=== PATIENT | male | born 1945 | race Caucasian/White ===

== ENCOUNTER 2017-09-16 15:49 | Inpatient (IN) | payer MEDICARE, BC ==
[2017-09-16] MEDS: ONDANSETRON 4 MG INJ IV (20:00)
[2017-09-16] MEDS: ASPIRIN 325 MG TAB PO (20:00)
[2017-09-16] MEDS: LIDOCAINE/MYLANTA 40 ML BTL PO (20:00)
[2017-09-16 20:06] LABS: ADD MAN DIFF? NO
[2017-09-16 20:16] LABS: WHITE BLOOD COUNT 19.1 10^3/ul (4.8-10.8)
[2017-09-16 20:16] LABS: ABNORMAL IP MESSAGE 1; BASOPHILS % 0.2 % (0.0-2.0); EOSINOPHILS % 0.1 % (0.0-7.0); HEMATOCRIT 45.5 % (42.0-52.0); HEMOGLOBIN 15.5 g/dl (14.0-18.0); LYMPHOCYTES # 0.4 10^3/ul (0.8-2.9); LYMPHOCYTES % 2.1 % (15.0-51.0); MEAN CORPUSCULAR HEMOGLOBIN 27.7 pg (29.0-33.0); MEAN CORPUSCULAR HGB CONC 34.1 g/dl (32.0-37.0); MEAN CORPUSCULAR VOLUME 81.3 fl (82.0-101.0); MEAN PLATELET VOLUME 10.7 fl (7.4-10.4); MONOCYTES % 5.4 % (0.0-11.0); NEUTROPHIL # 17.4 10^3/ul (1.6-7.5); NEUTROPHILS % 91.4 % (39.0-77.0); PLATELET COUNT 281 10^3/UL (140-415); POSITIVE DIFF @See below; RED CELL DISTRIBUTION WIDTH 13.2 % (11.5-14.5)
[2017-09-16 20:30] LABS: ANION GAP 16 (8-16); BLOOD UREA NITROGEN 21 mg/dl (7-20); CALCIUM 9.5 mg/dl (8.4-10.2); CARBON DIOXIDE 29 mmol/L (21-31); CHLORIDE 99 mmol/L (97-110); CREATININE 1.39 mg/dl (0.61-1.24); GLUCOSE 167 mg/dl (70-220); POTASSIUM 3.1 mmol/L (3.5-5.1); SODIUM 141 mmol/L (135-144)
[2017-09-16 20:44] LABS: B-TYPE NATRIURETIC PEPTIDE 407 PG/ML (0-125); TROPONIN-I 0.025 ng/ml (0.00-0.12)
[2017-09-16 22:28] LABS: URINE BLOOD (Dip) POC Trace-intact (NEGATIVE); URINE GLUCOSE (Dip) POC Negative (NEGATIVE); URINE KETONES (Dip) POC Trace (NEGATIVE); URINE LEUKOCYTE EST (Dip) POC Negative (NEGATIVE); URINE NITRITE (Dip) POC Negative (NEGATIVE); URINE TOTAL PROTEIN POC 3+ (NEGATIVE)
[2017-09-16 22:53] LABS: INR 1.13; PROTIME 14.7 Sec (11.9-14.9); PT RATIO 1.1
[2017-09-16 22:54] LABS: PARTIAL THROMBOPLASTIN TIME 34.1 Sec (25.0-35.0)
[2017-09-16 22:56] LABS: ALANINE AMINOTRANSFERASE 238 IU/L (13-69); ALBUMIN 4.6 g/dl (3.3-4.9); ALKALINE PHOSPHATASE 175 IU/L (42-121); ASPARTATE AMINO TRANSFERASE 285 IU/L (15-46); BILIRUBIN,INDIRECT 0.7 mg/dl (0-1.1); BILIRUBIN,TOTAL 1.8 mg/dl (0.2-1.3); LIPASE 108 U/L (23-300); TOTAL PROTEIN 7.6 g/dl (6.1-8.1)
[2017-09-16] MEDS: CEFTRIAXONE 1 GM/50 ML (PMX) 50 ML IVPB (23:10)
[2017-09-16] MEDS: SOD CHLORIDE 0.9% 1,000 ML IV ×2 (23:10→23:16)
[2017-09-16] MEDS ORDERED: NACL 0.9% 3 ML SYG IV (23:30)
[2017-09-16] MEDS ORDERED: ACETAMINOPHEN 325 MG TAB PO ×2 (23:30)
[2017-09-16] MEDS ORDERED: HYDROmorphONE 0.5 MG/0.5 ML SYG IV (23:30)
[2017-09-16] MEDS ORDERED: ONDANSETRON 4 MG INJ IV ×2 (23:30)
[2017-09-16 23:34] LABS: INR 1.12; PROTIME 14.6 Sec (11.9-14.9); PT RATIO 1.1
[2017-09-16 23:35] LABS: PARTIAL THROMBOPLASTIN TIME 29.2 Sec (25.0-35.0)
[2017-09-16] MEDS: metroNIDAZOLE 500 MG/NS (PMX) 100 ML IVPB (23:42)
[2017-09-17] MEDS: PIPER-TAZO 3.375 GM IV (PMX) 100 ML IVPB ×4 (00:46→17:26)
[2017-09-17 01:57] LABS: CREATINE KINASE 73 IU/L (23-200)
[2017-09-17 02:09] LABS: CK INDEX 0.8; TROPONIN-I 0.052 ng/ml (0.00-0.12)
[2017-09-17 02:10] LABS: CK-MB 0.58 ng/ml (0.0-2.4)
[2017-09-17 07:45] LABS: ADD MAN DIFF? NO
[2017-09-17 07:50] LABS: ABNORMAL IP MESSAGE 1; BASOPHILS % 0.1 % (0.0-2.0); HEMATOCRIT 40.4 % (42.0-52.0); HEMOGLOBIN 13.4 g/dl (14.0-18.0); LYMPHOCYTES # 0.7 10^3/ul (0.8-2.9); LYMPHOCYTES % 3.3 % (15.0-51.0); MEAN CORPUSCULAR HEMOGLOBIN 27.4 pg (29.0-33.0); MEAN CORPUSCULAR HGB CONC 33.2 g/dl (32.0-37.0); MEAN CORPUSCULAR VOLUME 82.6 fl (82.0-101.0); MEAN PLATELET VOLUME 11.1 fl (7.4-10.4); MONOCYTE # 1.1 10^3/ul (0.3-0.9); MONOCYTES % 4.7 % (0.0-11.0); NEUTROPHIL # 20.3 10^3/ul (1.6-7.5); NEUTROPHILS % 91.2 % (39.0-77.0); PLATELET COUNT 243 10^3/UL (140-415); POSITIVE DIFF @See below; RED BLOOD COUNT 4.89 10^6/ul (4.70-6.10); RED CELL DISTRIBUTION WIDTH 13.7 % (11.5-14.5)
[2017-09-17 07:50] LABS: WHITE BLOOD COUNT 22.3 10^3/ul (4.8-10.8)
[2017-09-17] MEDS: hydrALAzine 20 MG INJ IV (07:50)
[2017-09-17 08:14] LABS: HEMOGLOBIN A1C 6.9 % (0-5.9)
[2017-09-17 08:26] LABS: TROPONIN-I 0.069 ng/ml (0.00-0.12)
[2017-09-17 08:28] LABS: ALANINE AMINOTRANSFERASE 215 IU/L (13-69); ALBUMIN 3.4 g/dl (3.3-4.9); ALBUMIN/GLOBULIN RATIO 1.21; ALKALINE PHOSPHATASE 126 IU/L (42-121); ANION GAP 16 (8-16); ASPARTATE AMINO TRANSFERASE 207 IU/L (15-46); BILIRUBIN,INDIRECT 0.7 mg/dl (0-1.1); BILIRUBIN,TOTAL 3.1 mg/dl (0.2-1.3); BLOOD UREA NITROGEN 20 mg/dl (7-20); CALCIUM 8.7 mg/dl (8.4-10.2); CARBON DIOXIDE 30 mmol/L (21-31); CHLORIDE 100 mmol/L (97-110); CHOL/HDL RATIO 3.5 RATIO; CHOLESTEROL 103 mg/dl (100-200); CREATININE 1.22 mg/dl (0.61-1.24); GLUCOSE 161 mg/dl (70-220); HDL CHOLESTEROL 29 mg/dl (31-75); LDL CHOLESTEROL,CALCULATED 50 mg/dl; MAGNESIUM 1.5 mg/dl (1.7-2.5); POTASSIUM 3.7 mmol/L (3.5-5.1); SODIUM 142 mmol/L (135-144); TOTAL PROTEIN 6.2 g/dl (6.1-8.1); TRIGLYCERIDES 118 mg/dl (0-149)
[2017-09-17 08:30] LABS: CK INDEX 1.1; CREATINE KINASE 105 IU/L (23-200)
[2017-09-17 08:31] LABS: CK-MB 1.14 ng/ml (0.0-2.4)
[2017-09-17 08:45] LABS: THYROID STIMULATING HORMONE 0.588 MIU/L (0.465-4.680)
[2017-09-17] MEDS: PANTOPRAZOLE (EC) 40 MG TAB PO (09:28)
[2017-09-17] MEDS: DILTIAZEM (CD) 300 MG CAP PO (09:28)
[2017-09-17] MEDS: MAGNESIUM SULFATE 2 GM/50 ML 50 ML IVPB (12:16)
[2017-09-17] MEDS ORDERED: CEFAZOLIN 1 GM INJ (13:25)
[2017-09-17] MEDS ORDERED: MIDAZOLAM 1 MG/ML 2 ML INJ (13:25)
[2017-09-17] MEDS ORDERED: ROCURONIUM 50 MG INJ (13:25)
[2017-09-17] MEDS ORDERED: GLYCOPYRROLATE 0.4 MG INJ (13:25)
[2017-09-17] MEDS ORDERED: PROPOFOL 20 ML (13:25)
[2017-09-17] MEDS ORDERED: NEOSTIGMINE 3 MG/3 ML SYRINGE (13:25)
[2017-09-17] MEDS ORDERED: FENTAnyl 50 MCG/ML VIAL (13:26)
[2017-09-17] MEDS ORDERED: DEXAMETHASONE 4 MG/ML 1 ML INJ (13:26)
[2017-09-17] MEDS ORDERED: ONDANSETRON 4 MG INJ (13:26)
[2017-09-17] MEDS ORDERED: IOHEXOL 300MG/ML 30 ML BTL (13:41)
[2017-09-17] MEDS ORDERED: SUGAMMADEX SODIUM 200 MG/2 ML VIAL IV (14:11)
[2017-09-17] MEDS ORDERED: TRIMETHOBENZAMIDE 100 MG/ML VIAL IM (14:30)
[2017-09-17] MEDS ORDERED: DIPHENHYDRAMINE 50 MG INJ IV (14:30)
[2017-09-17] MEDS ORDERED: OXYCODONE/ACETAMINOPHEN (5/325) TAB PO ×2 (14:30)
[2017-09-17] MEDS ORDERED: MIDAZOLAM 1 MG/ML 2 ML INJ IV (14:30)
[2017-09-17] MEDS ORDERED: FENTAnyl 50 MCG/ML VIAL IV ×3 (14:30)
[2017-09-17] MEDS ORDERED: MEPERIDINE 25 MG INJ IV (14:30)
[2017-09-17] MEDS ORDERED: HYDROmorphONE (0.2 MG/ML) 10ML SYG IV ×3 (14:30)
[2017-09-17] MEDS ORDERED: hydrALAzine 20 MG INJ IV (14:30)
[2017-09-17] MEDS ORDERED: ONDANSETRON 4 MG INJ IV (14:30)
[2017-09-17] MEDS ORDERED: LABETALOL HCL 20MG INJ IV (14:30)
[2017-09-17] MEDS ORDERED: EPHEDrine SULFATE 50 MG/5 ML SYG IV (14:30)
[2017-09-17] MEDS: IPRATROPIUM (NEB) 0.5 MG/2.5 ML AMP HHN (14:50)
[2017-09-17] MEDS: ALBUTEROL 0.083% (NEB) 2.5 MG/3 ML AMP HHN (14:50)
[2017-09-17] MEDS: SOD CHLORIDE 0.9% 1,000 ML IV (16:15)
[2017-09-18] MEDS: SOD CHLORIDE 0.9% 1,000 ML IV ×2 (01:25→16:05)
[2017-09-18] MEDS: PIPER-TAZO 3.375 GM IV (PMX) 100 ML IVPB ×4 (05:31→17:49)
[2017-09-18] MEDS: PANTOPRAZOLE (EC) 40 MG TAB PO (05:32)
[2017-09-18] MEDS: hydrALAzine 20 MG INJ IV ×2 (05:39→16:37)
[2017-09-18 06:48] LABS: ADD MAN DIFF? NO
[2017-09-18 07:03] LABS: ABNORMAL IP MESSAGE 1; BASOPHILS % 0.1 % (0.0-2.0); HEMATOCRIT 37.7 % (42.0-52.0); HEMOGLOBIN 12.8 g/dl (14.0-18.0); LYMPHOCYTES # 0.5 10^3/ul (0.8-2.9); LYMPHOCYTES % 3.6 % (15.0-51.0); MEAN CORPUSCULAR VOLUME 82.5 fl (82.0-101.0); MEAN PLATELET VOLUME 11.1 fl (7.4-10.4); MONOCYTE # 0.4 10^3/ul (0.3-0.9); MONOCYTES % 2.9 % (0.0-11.0); NEUTROPHIL # 13.8 10^3/ul (1.6-7.5); NEUTROPHILS % 92.8 % (39.0-77.0); PLATELET COUNT 211 10^3/UL (140-415); POSITIVE DIFF @See below; RED BLOOD COUNT 4.57 10^6/ul (4.70-6.10); RED CELL DISTRIBUTION WIDTH 13.6 % (11.5-14.5)
[2017-09-18 07:03] LABS: WHITE BLOOD COUNT 14.8 10^3/ul (4.8-10.8)
[2017-09-18 07:13] LABS: MAGNESIUM 2.3 mg/dl (1.7-2.5)
[2017-09-18 07:13] LABS: PHOSPHORUS 2.1 mg/dl (2.5-4.9)
[2017-09-18] MEDS: DILTIAZEM (CD) 300 MG CAP PO ×2 (07:35→12:14)
[2017-09-18 07:54] LABS: HEMOGLOBIN A1C 6.7 % (0-5.9)
[2017-09-18 08:53] LABS: ALANINE AMINOTRANSFERASE 176 IU/L (13-69); ALBUMIN 3.3 g/dl (3.3-4.9); ALBUMIN/GLOBULIN RATIO 1.06; ALKALINE PHOSPHATASE 131 IU/L (42-121); ANION GAP 17 (8-16); ASPARTATE AMINO TRANSFERASE 119 IU/L (15-46); BILIRUBIN,INDIRECT 0.4 mg/dl (0-1.1); BILIRUBIN,TOTAL 0.4 mg/dl (0.2-1.3); BLOOD UREA NITROGEN 21 mg/dl (7-20); CALCIUM 8.5 mg/dl (8.4-10.2); CARBON DIOXIDE 30 mmol/L (21-31); CHLORIDE 103 mmol/L (97-110); CREATININE 1.29 mg/dl (0.61-1.24); GLUCOSE 187 mg/dl (70-220); POTASSIUM 3.7 mmol/L (3.5-5.1); SODIUM 146 mmol/L (135-144); TOTAL PROTEIN 6.4 g/dl (6.1-8.1)
[2017-09-18] MEDS ORDERED: ROCURONIUM 50 MG INJ (09:24)
[2017-09-18] MEDS ORDERED: LIDOCAINE 1% (MDV) 20 ML INJ (09:24)
[2017-09-18] MEDS ORDERED: MIDAZOLAM 1 MG/ML 2 ML INJ (09:24)
[2017-09-18] MEDS ORDERED: PROPOFOL 20 ML (09:24)
[2017-09-18] MEDS ORDERED: LABETALOL HCL 20MG INJ (09:35)
[2017-09-18] MEDS ORDERED: ONDANSETRON 4 MG INJ (09:50)
[2017-09-18] MEDS ORDERED: FAMOTIDINE 20 MG INJ (09:50)
[2017-09-18] MEDS ORDERED: DEXAMETHASONE 4 MG/ML 1 ML INJ (09:50)
[2017-09-18] MEDS ORDERED: hydrALAzine 20 MG INJ IV (10:00)
[2017-09-18] MEDS ORDERED: LABETALOL HCL 20MG INJ IV (10:00)
[2017-09-18] MEDS ORDERED: DIPHENHYDRAMINE 50 MG INJ IV (10:00)
[2017-09-18] MEDS ORDERED: METOCLOPRAMIDE 10 MG INJ IV (10:00)
[2017-09-18] MEDS ORDERED: ONDANSETRON 4 MG INJ IV ×2 (10:00→11:00)
[2017-09-18] MEDS ORDERED: MEPERIDINE 25 MG INJ IV (10:00)
[2017-09-18] MEDS ORDERED: HYDROmorphONE (0.2 MG/ML) 10ML SYG IV ×2 (10:00)
[2017-09-18] MEDS ORDERED: hydrALAzine 20 MG INJ (10:04)
[2017-09-18] MEDS: BUPIVACAINE 0.25% (MPF) 30 ML INJ (10:08)
[2017-09-18] MEDS ORDERED: ROPIVACAINE 0.5 % 30 ML VIAL (10:09)
[2017-09-18] MEDS ORDERED: SUGAMMADEX SODIUM 200 MG/2 ML VIAL IV (10:35)
[2017-09-18] MEDS ORDERED: OXYCODONE/ACETAMINOPHEN (5/325) TAB PO (11:00)
[2017-09-18] MEDS ORDERED: morphine 2 MG INJ IV (11:00)
[2017-09-18] MEDS: POTASSIUM PHOSPHATE 15 MM in SOD CHLORIDE 0.9% 250 ML IVPB (16:45)
[2017-09-18] MEDS: VALSARTAN 160 MG TAB PO (20:59)
[2017-09-18] MEDS: METOPROLOL 50 MG TAB PO (21:00)
[2017-09-18] MEDS ORDERED: VALSARTAN 160 MG TAB PO (21:00)
[2017-09-19] MEDS: PIPER-TAZO 3.375 GM IV (PMX) 100 ML IVPB ×4 (00:31→17:03)
[2017-09-19] MEDS: hydrALAzine 20 MG INJ IV (00:38)
[2017-09-19] MEDS: OXYCODONE/ACETAMINOPHEN (5/325) TAB PO (01:31)
[2017-09-19] MEDS: SOD CHLORIDE 0.9% 1,000 ML IV ×2 (04:36→17:03)
[2017-09-19 05:50] LABS: ADD MAN DIFF? NO
[2017-09-19 05:56] LABS: WHITE BLOOD COUNT 16.8 10^3/ul (4.8-10.8)
[2017-09-19 05:56] LABS: BASOPHILS % 0.1 % (0.0-2.0); HEMATOCRIT 40.1 % (42.0-52.0); HEMOGLOBIN 13.4 g/dl (14.0-18.0); LYMPHOCYTES # 0.7 10^3/ul (0.8-2.9); LYMPHOCYTES % 4.2 % (15.0-51.0); MEAN CORPUSCULAR HEMOGLOBIN 27.6 pg (29.0-33.0); MEAN CORPUSCULAR HGB CONC 33.4 g/dl (32.0-37.0); MEAN CORPUSCULAR VOLUME 82.5 fl (82.0-101.0); MEAN PLATELET VOLUME 11.4 fl (7.4-10.4); MONOCYTE # 0.8 10^3/ul (0.3-0.9); MONOCYTES % 4.9 % (0.0-11.0); NEUTROPHILS % 89.6 % (39.0-77.0); PLATELET COUNT 258 10^3/UL (140-415); RED BLOOD COUNT 4.86 10^6/ul (4.70-6.10); RED CELL DISTRIBUTION WIDTH 14.1 % (11.5-14.5)
[2017-09-19 06:21] LABS: PHOSPHORUS 2.6 mg/dl (2.5-4.9)
[2017-09-19 06:23] LABS: ALANINE AMINOTRANSFERASE 148 IU/L (13-69); ALBUMIN 3.4 g/dl (3.3-4.9); ALBUMIN/GLOBULIN RATIO 1.03; ALKALINE PHOSPHATASE 130 IU/L (42-121); ANION GAP 14 (8-16); ASPARTATE AMINO TRANSFERASE 77 IU/L (15-46); BILIRUBIN,INDIRECT 0.3 mg/dl (0-1.1); BILIRUBIN,TOTAL 0.3 mg/dl (0.2-1.3); BLOOD UREA NITROGEN 20 mg/dl (7-20); CALCIUM 8.7 mg/dl (8.4-10.2); CARBON DIOXIDE 30 mmol/L (21-31); CHLORIDE 105 mmol/L (97-110); CREATININE 1.26 mg/dl (0.61-1.24); GLUCOSE 150 mg/dl (70-220); POTASSIUM 3.4 mmol/L (3.5-5.1); SODIUM 146 mmol/L (135-144); TOTAL PROTEIN 6.7 g/dl (6.1-8.1)
[2017-09-19] MEDS: PANTOPRAZOLE (EC) 40 MG TAB PO (06:26)
[2017-09-19] MEDS: HYDROCHLOROTHIAZIDE 12.5 MG CAP PO (08:13)
[2017-09-19] MEDS: DILTIAZEM (CD) 300 MG CAP PO (08:14)
[2017-09-19] MEDS: VALSARTAN 160 MG TAB PO ×2 (08:15→22:06)
[2017-09-19] MEDS ORDERED: METOPROLOL 50 MG TAB PO (09:00)
[2017-09-19] MEDS: LACTULOSE 30ML CUP PO (10:32)
[2017-09-19] MEDS: AMLODIPINE 5 MG TAB PO ×2 (11:28→22:27)
[2017-09-19] MEDS: METOPROLOL 50 MG TAB PO (22:07)
[2017-09-20] MEDS: PIPER-TAZO 3.375 GM IV (PMX) 100 ML IVPB ×3 (00:16→11:29)
[2017-09-20 05:26] LABS: ADD MAN DIFF? NO
[2017-09-20 05:29] LABS: BASOPHILS % 0.2 % (0.0-2.0); EOSINOPHILS % 0.1 % (0.0-7.0); HEMATOCRIT 37.4 % (42.0-52.0); HEMOGLOBIN 12.1 g/dl (14.0-18.0); LYMPHOCYTES # 1.2 10^3/ul (0.8-2.9); LYMPHOCYTES % 9.9 % (15.0-51.0); MEAN CORPUSCULAR HEMOGLOBIN 27.1 pg (29.0-33.0); MEAN CORPUSCULAR HGB CONC 32.4 g/dl (32.0-37.0); MEAN CORPUSCULAR VOLUME 83.9 fl (82.0-101.0); MONOCYTE # 0.9 10^3/ul (0.3-0.9); MONOCYTES % 7.7 % (0.0-11.0); NEUTROPHIL # 9.9 10^3/ul (1.6-7.5); NEUTROPHILS % 81.2 % (39.0-77.0); PLATELET COUNT 272 10^3/UL (140-415); RED BLOOD COUNT 4.46 10^6/ul (4.70-6.10); RED CELL DISTRIBUTION WIDTH 14.1 % (11.5-14.5)
[2017-09-20 05:29] LABS: WHITE BLOOD COUNT 12.1 10^3/ul (4.8-10.8)
[2017-09-20] MEDS: PANTOPRAZOLE (EC) 40 MG TAB PO (06:00)
[2017-09-20 06:11] LABS: ANION GAP 10 (8-16); BLOOD UREA NITROGEN 26 mg/dl (7-20); CALCIUM 8.2 mg/dl (8.4-10.2); CARBON DIOXIDE 31 mmol/L (21-31); CHLORIDE 105 mmol/L (97-110); CREATININE 1.32 mg/dl (0.61-1.24); GLUCOSE 133 mg/dl (70-220); POTASSIUM 3.3 mmol/L (3.5-5.1); SODIUM 143 mmol/L (135-144)
[2017-09-20] MEDS: SOD CHLORIDE 0.9% 1,000 ML IV (07:16)
[2017-09-20] MEDS: AMLODIPINE 5 MG TAB PO (09:00)
[2017-09-20] MEDS: VALSARTAN 160 MG TAB PO (09:00)
[2017-09-20] MEDS: HYDROCHLOROTHIAZIDE 12.5 MG CAP PO (09:00)
[2017-09-20] MEDS: DILTIAZEM (CD) 300 MG CAP PO (09:00)
[2017-09-20 10:37] LABS: ALANINE AMINOTRANSFERASE 109 IU/L (13-69); ALBUMIN 2.8 g/dl (3.3-4.9); ALKALINE PHOSPHATASE 85 IU/L (42-121); ASPARTATE AMINO TRANSFERASE 51 IU/L (15-46); BILIRUBIN,INDIRECT 0.4 mg/dl (0-1.1); BILIRUBIN,TOTAL 0.4 mg/dl (0.2-1.3); TOTAL PROTEIN 5.4 g/dl (6.1-8.1)
[2017-09-20] MEDS: POTASSIUM CHLORIDE (SR) 20 MEQ TAB PO (11:29)
== END 2017-09-20 15:30 | disposition home or self-care (01) | DRG 419 ==
LOC: MS3 23:08 → E/R 15:49
PROC: 0FT44ZZ Resection of Gallbladder, Percutaneous Endoscopic Approach (ICD-10-PCS; principal; 2017-09-17 13:34)
PROC: 0FC78ZZ Extirpation of Matter from Common Hepatic Duct, Via Natural or Artificial Opening Endoscopic (ICD-10-PCS; 2017-09-17 13:34)
PROC: 0FC98ZZ Extirpation of Matter from Common Bile Duct, Via Natural or Artificial Opening Endoscopic (ICD-10-PCS; 2017-09-17 13:34)
PROC: 0F798DZ Dilation of Common Bile Duct with Intraluminal Device, Via Natural or Artificial Opening Endoscopic (ICD-10-PCS; 2017-09-17 13:34)
PROC: BF10YZZ Fluoroscopy of Bile Ducts using Other Contrast (ICD-10-PCS; 2017-09-17 13:34)
DX: K80.67 Calculus of gallbladder and bile duct with acute and chronic cholecystitis with obstruction (principal); I48.0 Paroxysmal atrial fibrillation; I10 Essential (primary) hypertension; E78.00 Pure hypercholesterolemia, unspecified; E87.6 Hypokalemia; I25.10 Atherosclerotic heart disease of native coronary artery without angina pectoris; M10.9 Gout, unspecified; Z79.82 Long term (current) use of aspirin; Z95.5 Presence of coronary angioplasty implant and graft
CPT/HCPCS: 36415; 71045; 74176; 74330; 76705; 80048; 80053; 80061; 80076; 81003; 82550; 82553; 83036; 83690; 83735; 83880; 84100; 84443; 84484; 85025; 85610; 85730; 88304; 93005; 94640; 94664; 96374; 96375; 99285-25

== ENCOUNTER 2017-11-17 11:53 | Day surgery (SDC) | payer MEDICARE, BC ==
[2017-11-17 13:34] LABS: ADD MAN DIFF? NO
[2017-11-17 13:36] LABS: BASOPHILS % 0.3 % (0.0-2.0); EOSINOPHILS # 0.1 10^3/ul (0.0-0.5); EOSINOPHILS % 1.5 % (0.0-7.0); HEMATOCRIT 38.5 % (42.0-52.0); HEMOGLOBIN 13.3 g/dl (14.0-18.0); LYMPHOCYTES # 1.2 10^3/ul (0.8-2.9); MEAN CORPUSCULAR HEMOGLOBIN 27.9 pg (29.0-33.0); MEAN CORPUSCULAR HGB CONC 34.5 g/dl (32.0-37.0); MEAN CORPUSCULAR VOLUME 80.7 fl (82.0-101.0); MEAN PLATELET VOLUME 9.8 fl (7.4-10.4); MONOCYTE # 0.5 10^3/ul (0.3-0.9); MONOCYTES % 6.5 % (0.0-11.0); NEUTROPHIL # 5.6 10^3/ul (1.6-7.5); NEUTROPHILS % 75.3 % (39.0-77.0); PLATELET COUNT 250 10^3/UL (140-415); RED BLOOD COUNT 4.77 10^6/ul (4.70-6.10); RED CELL DISTRIBUTION WIDTH 13.2 % (11.5-14.5)
[2017-11-17 13:36] LABS: WHITE BLOOD COUNT 7.4 10^3/ul (4.8-10.8)
[2017-11-17 13:54] LABS: ALANINE AMINOTRANSFERASE 41 IU/L (13-69); ALBUMIN 4.1 g/dl (3.3-4.9); ALKALINE PHOSPHATASE 83 IU/L (42-121); ANION GAP 18 (8-16); ASPARTATE AMINO TRANSFERASE 31 IU/L (15-46); BILIRUBIN,INDIRECT 0.5 mg/dl (0-1.1); BILIRUBIN,TOTAL 0.5 mg/dl (0.2-1.3); CARBON DIOXIDE 29 mmol/L (21-31); CHLORIDE 101 mmol/L (97-110); GLUCOSE 126 mg/dl (70-220); TOTAL PROTEIN 7.5 g/dl (6.1-8.1)
[2017-11-17 13:55] LABS: BLOOD UREA NITROGEN 27 mg/dl (7-20); CALCIUM 9.3 mg/dl (8.4-10.2); CREATININE 1.63 mg/dl (0.61-1.24); POTASSIUM 3.1 mmol/L (3.5-5.1); SODIUM 145 mmol/L (135-144)
[2017-11-17 14:08] LABS: INR 0.94; PROTIME 12.7 Sec (11.9-14.9)
[2017-11-17 14:11] LABS: PARTIAL THROMBOPLASTIN TIME 35.5 Sec (25.0-35.0)
[2017-11-17] MEDS ORDERED: PROPOFOL 40 ML (15:01)
[2017-11-17] MEDS ORDERED: MIDAZOLAM 1 MG/ML 2 ML INJ (15:02)
[2017-11-17] MEDS ORDERED: FENTAnyl 50 MCG/ML VIAL (15:06)
[2017-11-17] MEDS ORDERED: ROCURONIUM 50 MG INJ (15:44)
[2017-11-17] MEDS ORDERED: SUCCINYLCHOLINE CHLORIDE 100 MG/5 ML SYG IV (15:44)
[2017-11-17] MEDS ORDERED: SUGAMMADEX SODIUM 200 MG/2 ML VIAL IV (15:44)
== END 2017-11-17 17:28 | disposition home or self-care (01) ==
LOC: GIL 11:53 → SDS 11:53 → GIL 17:28
DX: K29.50 Unspecified chronic gastritis without bleeding (principal); K80.50 Calculus of bile duct without cholangitis or cholecystitis without obstruction; I10 Essential (primary) hypertension; I25.2 Old myocardial infarction; I25.10 Atherosclerotic heart disease of native coronary artery without angina pectoris; E66.9 Obesity, unspecified; Z68.36 Body mass index [BMI] 36.0-36.9, adult
CPT/HCPCS: 43264; 74330; 80053; 85025; 85610; 85730; 88305; 88312; 93005